=== PATIENT | male | born 1975 | race Caucasian/White ===

== ENCOUNTER 2019-02-27 18:50 | Emergency (ER) | payer SELFPAY ==
[~2019-02-27] VITALS: Ht 274.3 cm; Wt 95.3 kg
--- OUTSIDE RECORDS SUMMARY | 2019-02-27 18:55 | XMS REPORT | Continuity Of Care Document ---
Author Author [facility] Organization [facility] Address [address] [place] [address] Phone Care Team Providers Care Physician Relations Specialist Name Role Phone BREEDING REX OTERO Unavailable UNASSIGNED, ED PHYSICIAN Unavailable Unavailable NOT NEEDED, NSP Unavailable Unavailable SALOMÓN PORRAS DO AT Results Lab Results Visit/Account #[id number] (May 19, 2015 8:46am - May 19, 2015 1:25pm) Test Result Date/Time 72403-4: COMPLETE BLOOD COUNT WITH DIFF WHITE BLOOD COUNT(4.0-11.0 10E3/UL) 12.4 10E3/UL May 19, 2015 8:47am RED BLOOD COUNT(4.50-5.90 10E6/UL) 4.98 10E6/UL May 19, 2015 8:47am HEMOGLOBIN(13.5-17.5 G/DL) 14.9 G/DL May 19, 2015 8:47am HEMATOCRIT(41.0-53.0 %) 44.4 % May 19, 2015 8:47am MEAN CORPUSCULAR VOLUME(82.0-100.0 FL) 89.2 FL May 19, 2015 8:47am 84358-2: MEAN CORPUSCULAR HEMOGLOBIN(26.0-34.0 PG) 29.9 PG May 19, 2015 8:47am MEAN CORPUSCULAR HGB CONC(31.5-36.5 G/DL) 33.6 G/DL May 19, 2015 8:47am RED CELL DISTRIBUTION WIDTH(11.5-14.5 %) 13.3 % May 19, 2015 8:47am 777-3: PLATELET COUNT(150-450 10E3/UL) 308 10E3/UL May 19, 2015 8:47am MEAN PLATELET VOLUME(8.2-12.4 FL) 10.8 FL May 19, 2015 8:47am 770-8: NEUTROPHILS % (AUTO)(40-70 %) 72 % May 19, 2015 8:47am LYMPHOCYTES % (AUTO)(15-45 %) 17 % May 19, 2015 8:47am 5905-5: MONOCYTES % (AUTO)(2-10 %) 7 % May 19, 2015 8:47am 713-8: EOSINOPHILS % (AUTO)(0-6 %) 4 % May 19, 2015 8:47am 706-2: BASOPHILS % (AUTO)(0-1 %) 1 % May 19, 2015 8:47am 96225-6: IMMATURE GRANS % (AUTO)(0-0 %) 0 % May 19, 2015 8:47am NUCLEATED RBCS (AUTO)(0-0 %) 0 % May 19, 2015 8:47am 751-8: NEUTROPHILS # (AUTO)(2.5-7.5 10E3/UL) 9.0 10E3/UL May 19, 2015 8:47am 58104-2: LYMPHOCYTES # (AUTO)(1.0-4.0 10E3/UL) 2.1 10E3/UL May 19, 2015 8:47am 742-7: MONOCYTES # (AUTO)(0.2-0.8 10E3/UL) 0.8 10E3/UL May 19, 2015 8:47am 711-2: EOSINOPHILS # (AUTO)(0.0-0.4 10E3/UL) 0.4 10E3/UL May 19, 2015 8:47am 704-7: BASOPHILS # (AUTO)(0.0-0.2 10E3/UL) 0.1 10E3/UL May 19, 2015 8:47am IMMATURE GRANS # (AUTO)(0.0-0.0 10E3/UL) 0.1 10E3/UL May 19, 2015 8:47am DIFF TYPE AUTOMATED May 19, 2015 8:47am UA WITH SCREEN FOR CULTURE 5778-6: COLOR,URINE YELLOW May 19, 2015 8:45am 04855-6: CLARITY,URINE CLEAR May 19, 2015 8:45am GLUCOSE, URINE(NEGATIVE MG/DL) NEGATIVE MG/DL May 19, 2015 8:45am URINE BILIRUBIN(NEGATIVE) NEGATIVE May 19, 2015 8:45am 22751-1: KETONES,URINE(NEGATIVE MG/DL) NEGATIVE MG/DL May 19, 2015 8:45am 2965-2: URINE SPECIFIC GRAVITY(1.001-1.035) 1.025 May 19, 2015 8:45am 75671-5: URINE BLOOD(NEGATIVE) NEGATIVE May 19, 2015 8:45am 2756-5: URINE PH(5.0-9.0) 6.0 May 19, 2015 8:45am URINE PROTEIN(Less than 20 MG/DL) NEGATIVE MG/DL May 19, 2015 8:45am URINE UROBILINOGEN(0.2-1.0 MG/DL) 0.2 MG/DL May 19, 2015 8:45am URINE NITRITE(NEGATIVE) NEGATIVE May 19, 2015 8:45am 5799-2: LEUKOCYTE ESTERASE ,URINE(NEGATIVE) NEGATIVE May 19, 2015 8:45am 630-4: URINE CULTURE NOT INDICATED May 19, 2015 8:45am URINE MICROSCOPIC REQUIRED NO May 19, 2015 8:45am 24896-0: COMPLETE METABOLIC PROFILE GLUCOSE(70-110 MG/DL) 109 MG/DL May 19, 2015 8:47am BLOOD UREA NITROGEN(6-20 MG/DL) 18 MG/DL May 19, 2015 8:47am CREATININE(0.50-1.20 MG/DL) 1.07 MG/DL May 19, 2015 8:47am 06094-1: EST GLOMERULAR FILTRATION RATE(Greater than or equal to 60) Greater than or equal to 60 Result Comments: If the patient is of -Iraqi descent/extraction multiply the eGFR value by 1.212 to obtain the actual eGFR. >=60 mg/dL Normal 30-59 mg/dL Moderate Kidney Disease 15-29 mg/dL Severe Kidney Disease <15 mg/dL Kidney Failure May 19, 2015 8:47am BUN CREATININE RATIO(10.0-20.0 RATIO) 17.0 RATIO May 19, 2015 8:47am SODIUM(135-145 MMOL/L) 138 MMOL/L May 19, 2015 8:47am POTASSIUM(3.6-5.0 MMOL/L) 4.2 MMOL/L May 19, 2015 8:47am CHLORIDE(101-111 MMOL/L) 102 MMOL/L May 19, 2015 8:47am 2027-9: CO2(21-31 MMOL/L) 27.0 MMOL/L May 19, 2015 8:47am 11807-8: ANION GAP(8-18) 13 May 19, 2015 8:47am OSMO CALCULATED(270.0-290.0) 278.2 May 19, 2015 8:47am CALCIUM(8.5-10.5 MG/DL) 9.8 MG/DL May 19, 2015 8:47am BILIRUBIN,TOTAL(0.1-1.2 MG/DL) 0.4 MG/DL May 19, 2015 8:47am ALKALINE PHOSPHATASE(42-121 IU/L) 65 IU/L May 19, 2015 8:47am ASPARTATE AMINO TRANSFERASE(10-42 IU/L) 18 IU/L May 19, 2015 8:47am ALANINE AMINOTRANSFERASE(10-60 IU/L) 27 IU/L May 19, 2015 8:47am 49923-0: TOTAL PROTEIN(6.4-8.2 G/DL) 7.0 G/DL May 19, 2015 8:47am ALBUMIN(3.5-5.5 G/DL) 4.2 G/DL May 19, 2015 8:47am 2336-6: GLOBULIN(2.4-3.6) 2.8 May 19, 2015 8:47am ALBUMIN/GLOBULIN RATIO(0.9-1.8 RATIO) 1.5 RATIO May 19, 2015 8:47am 72492-4: MAGNESIUM 04609-9: MAGNESIUM(1.8-2.5 MG/DL) 2.0 MG/DL May 19, 2015 8:47am 69229-4: CARDIAC TROPONIN I 64915-2: CARDIAC TROPONIN I(0.01-0.04 NG/ML) Less than 0.01 NG/ML Result Comments: REFERENCE RANGES: NEGATIVE < 0.04 NG/ML POSSIBLE MYCARDIAL INVOLVEMENT >/=0.04 NG/ML INTERPRET TROPONIN I RESULT IN LIGHT OF THE TOTAL CLINICAL PRESENTATION INCLUDING CLINICAL HISTORY. ANY CONDITION RESULTING IN MYOCARDIAL INJURY CAN POTENTIALLY ELEVATE TROPONIN I LEVELS ABOVE EXPECTED NORMAL RANGES. NOTE NEW REFERENCE RANGE May 19, 2015 8:47am 3040-3: LIPASE 3040-3: LIPASE(22-51 U/L) 40 U/L May 19, 2015 8:47am THYROID STIMULATING HORMONE THYROID STIMULATING HORMONE(0.340-5.600 uIU/ML) 1.910 uIU/ML May 19, 2015 8:47am Allergies and Adverse Reactions Allergies and Adverse Reactions Patient Unit Number: [id number] Agent Type Reaction Severity Status NO KNOWN DRUG ALLERGIES Drug Allergy Unknown Unknown Active Problem List Problem List Visit/Account #[id number] (May 19, 2015 8:46am - May 19, 2015 1:25pm) Acute Problems: Code/Condition Comments Documented Start Date Documented Resolved Date Code(s) Cholelithiases ICD10: K80.20 Cholelithiasis ICD9: 574.20 Cholelithiasis SNOMED: 460684140 Cholelithiasis Afib ICD10: I48.91 Atrial fibrillation ICD9: 427.31 Atrial fibrillation SNOMED: 75362558 Atrial fibrillation Abdominal pain ICD10: R10.9 Abdominal pain ICD9: 789.00 Abdominal pain SNOMED: 67485656 Abdominal pain Plan of Care Plan Of Care Visit/Account #[id number] (May 19, 2015 8:46am - May 19, 2015 1:25pm) Patient Instructions Take the [place] one to 2 tablets every 6 hours as needed for pain, take the Zofran every 8 hours as needed for nausea. Followup tomorrow at 10:15 AM to check in for your HIDA scan, follow up with Dr. Velazquez at 1pm for your appointment for gall stones. Do not drink or eat after midnight. Return to the ED for any concerns or worsening of symptoms. Follow up with Dr. Ahn for your afib, call her office to be seen this week. Vital Signs Vital Signs Visit/Account #[id number] (May 19, 2015 8:46am - May 19, 2015 1:25pm) Sign First Result Last Result Code(s) Temperature in Fahrenheit Temperature (Fahrenheit): 96.1 [degF] On May 19, 2015 8:38am 8310-5 Body Temperature Weight in Kilograms Weight (Kilograms): 89.1 kg On May 19, 2015 8:38am 3141-9 Weight Measured 27105-5 Body weight measured in kilograms Functional Status Functional and Cognitive Status No Functional Status Data Medications Inpatient/Ordered Medications - Medications administered during hospital visit Visit/Account #[id number] (May 19, 2015 8:46am - May 19, 2015 1:25pm) Medication Route Sig/Schedule Precondition/Indication Comments/Instructions Codes SUBLIMAZE INJ(FentaNYL CITRATE) 100 MCG/2 ML INJECTION Dose: 1.5 ML INTRAVEN NOW Rx Order Comments: Order placed as verified: Dose Warnings differ from court orderly Dose Warnings differ from court orderly Label Comments: MAY INCREASE FALL RISK Fentanyl 0.05 MG/ML Injectable Solution (RxNorm): 924347 SUBLIMAZE INJ (FentaNYL CITRATE) NDC: 07133843215 ZOFRAN INJ(ONDansetron HCL) 4 MG/2 ML INJECTION Dose: 2 ML INTRAVEN ONE TIME ORDER Rx Order Comments: Order placed as verified: Dose Warnings differ from court orderly Dose Warnings differ from court orderly Label Comments: SLOW IV PUSH MAY BE SUBSTITUTED FOR ANZEMET (DOLASETRON) MAY INCREASE FALL RISK Ondansetron 2 MG/ML Injectable Solution (RxNorm): 784801 ZOFRAN INJ (ONDansetron HCL) NDC: 00708626802 IV Medication Carriers: NORMAL SALINE(SODIUM CHLORIDE) 1000 ML INJECTION Dose: 1000 ML INTRAVEN .Q1H (Rate: 1000 MLS/HR Duration: 1 HR) Rx Order Comments: Order placed as verified: Dose Warnings differ from court orderly Dose Warnings differ from court orderly Carriers: Sodium Chloride 0.154 MEQ/ML Injectable Solution (RxNorm): 491928 NORMAL SALINE (SODIUM CHLORIDE) NDC: 32478021234 Discharge Medications - Medications that patient should continue to take. Review with physician Visit/Account #[id number] (May 19, 2015 8:46am - May 19, 2015 1:25pm) Medication Route Sig/Schedule Precondition/Indication Comments/Instructions Codes NORCO 5-325 TABLET(HYDROcodone BIT/ACETAMINOPHEN) 1 EACH TABLET Dose: 1-2 TAB ORAL EVERY 6 HOURS PAIN Acetaminophen 325 MG / Hydrocodone Bitartrate 5 MG Oral Tablet (RxNorm): 649385 NORCO 5-325 TABLET (HYDROcodone BIT/ACETAMINOPHEN) NDC: 16880785866 ZOFRAN ODT(ONDansetron) 4 MG/UDTABLET TAB.RAPDIS Dose: 4 MG ORAL EVERY 8 HOURS NAUSEA Ondansetron 4 MG Disintegrating Oral Tablet [Zofran] (RxNorm): 256096 ZOFRAN ODT (ONDansetron) [facility]: [id number] History Of Encounters Encounters Visit/Account #[id number] (May 19, 2015 8:46am - May 19, 2015 1:25pm) Account Status Physican Of Record Reason For Visit Visit Diagnosis Start Date/Time Stop Date/Time ER SALOMÓN PORRAS DO LEFT LOWER ABD PAIN Not Available May 19, 2015 8:46am May 19, 2015 1:25pm History of Procedures Procedure List No procedures recorded. Discharge Instructions Discharge Instructions Visit/Account #[id number] (May 19, 2015 8:46am - May 19, 2015 1:25pm) DISCHARGE INSTRUCTIONS Physician Documentation Social History Social History No Social History Data. Immunizations Immunizations Patient Unit Number: [id number] Immunizations No immunizations recorded.
--- NOTE | 2019-02-27 19:36 | Diagnostic Imaging Report ---
EXAMINATION: Left ankle radiographs, 3 views. COMPARISON: None. HISTORY: 44-year-old male, fell out of a tree. Left ankle pain. FINDINGS: There is a mildly displaced fracture involving the lateral aspect of the talus with adjacent soft tissue swelling. The alignment of the ankle mortise is unremarkable. There is no identified large tibiotalar joint effusion. There is no identified radiopaque foreign body. IMPRESSION: 1. Mildly displaced fracture involving the lateral talus. Dictated by: Dictated on workstation # [id number]
--- NOTE | 2019-02-27 19:43 | ED Lower Extremity ---
General Chief Complaint: Lower Extremity Stated Complaint: LT ANKLE PAIN Nursing Triage Note: pt fell out of tree earlier today, has been walking around since but co left ankle pain Nursing Sepsis Screen: No Definite Risk History of Present Illness Date Seen by Provider: Feb 27, 2019 Time Seen by Provider: 18:56 Initial Comments 44-year-old male presenting with complaints of left ankle pain since falling from a tree around 1600. He states that he fell approximately 15-20 feet and landed on his feet. He is having left ankle pain and is unable to bear weight. He states that when he tries to bear any weight on the left ankle he feels a grinding sensation. He has more pain towards the outside her lateral part of his ankle but he also has some pain in the medial aspect of the ankle. He did wrap his ankle with an Matthew bandage and tried taking 4 Tylenol pills at home. He went to the [facility] clinic and was directed to come here. They had not evaluated him or done any x-rays. He denies hitting his head or having any other injuries. He is able to bear weight on the right foot and ankle. He denies previous injuries to the left ankle. He has normal sensation and pulses to the left foot. Allergies and Home Medications Allergies Coded Allergies: No Known Drug Allergies (Unverified , 02/27/19) Home Medications Hydrocodone Bit/Acetaminophen 1 Tab Tab, 1 EACH PO Q4-6HR PRN for PAIN-MODERATE Prescribed by: MIKALA CARBONE on 02/27/19 5729 Patient Home Medication List Home Medication List Reviewed: Yes Review of Systems Constitutional: no symptoms reported EENTM: no symptoms reported Respiratory: no symptoms reported Cardiovascular: no symptoms reported Gastrointestinal: no symptoms reported Genitourinary: no symptoms reported Musculoskeletal: see HPI Skin: no symptoms reported Past Vssyuap-Jxbcsh-Hktyzc Hx Past Med/Social Hx: Reviewed Nursing Past Med/Soc Hx Patient Social History Alcohol Use: Denies Use Recreational Drug Use: No Smoking Status: Current Everyday Smoker Type Used: Cigarettes 2nd Hand Smoke Exposure: No Recent Foreign Travel: No Contact w/Someone Who Travel: No Recent Infectious Disease Expo: No Recent Hopitalizations: No Physical Abuse: No Sexual Abuse: No Mistreated: No Fear: No Seasonal Allergies Seasonal Allergies: No Past Medical History Surgeries: Yes Tonsillectomy Respiratory: No Cardiac: No Neurological: No Genitourinary: No Gastrointestinal: No Musculoskeletal: No Endocrine: No HEENT: No Cancer: No Psychosocial: No Integumentary: No Blood Disorders: No Physical Exam Vital Signs Vital Signs - First Documented 02/27/19 19:08 Temp 97.8 Pulse 50 Resp 20 B/P (MAP) 105/78 (87) Pulse Ox 98 O2 Delivery Room Air Capillary Refill : Less Than 3 Seconds Height, Weight, BMI Height: 9'" Weight: 210lbs. oz. 95.966339xf; BMI Method:Stated General Appearance: WD/WN, mild distress HEENT: PERRL/EOMI, pharynx normal Neck: non-tender, full range of motion, supple, normal inspection Cardiovascular: normal peripheral pulses, regular rate, rhythm Respiratory: chest non-tender, lungs clear, normal breath sounds Back: normal inspection, no vertebral tenderness Knees: left knee non-tender, left knee normal inspection, left knee normal range of motion, left knee no evidence of injury Ankles: left ankle bone tenderness, left ankle limited range of motion, left ankle pain, left ankle soft tissue tenderness, left ankle swelling Feet: left foot pain, left foot soft tissue tenderness, left foot swelling Neurologic/Tendon: normal sensation, normal motor functions, normal tendon functions Neurologic/Psychiatric: no motor/sensory deficits, alert, normal mood/affect, oriented x 3 Skin: normal color, warm/dry Progress/Results/Core Measures Results/Orders My Orders Orders - MIKALA CARBONE MD Ice: Apply To Affected Area (02/27/19 19:15) Elevate Affected Extremity (02/27/19 19:15) Ankle 3 View Left (02/27/19 19:15) Ct Extremity Lower Left Wo (02/27/19 20:18) Crutches (02/27/19 21:34) Ed Ortho Supplies Order (02/27/19 21:34) Rx-Hydrocodone/Apap 5-325 Mg (Rx-Vicodin (02/27/19 22:45) Vital Signs/I&O 02/27/19 02/27/19 19:08 22:47 Temp 97.8 Pulse 50 92 Resp 20 16 B/P (MAP) 105/78 (87) 104/51 (68) Pulse Ox 98 98 O2 Delivery Room Air Room Air Blood Pressure Mean: 87 Progress Progress Note #1: Progress Note obtain xrays of the left ankle and give ice pack with elevation of the left foot/ankle. He took acetaminophen at home prior to coming to the ED so will hold off on pain medicine until after imaging. Progress Note #2: Time: 19:38 Progress Note On my review with the 3 view films of his left ankle there are no acute fracture or dislocation. Will plan on treating for severe sprain with splint and crutches for weightbearing as tolerated. Will have him follow-up through the clinic for continued management. Progress Note #3: Time: 19:44 Progress Note The radiologist read the xrays as showing a fracture of the lateral talus so a CT scan will be obtained to get finer details of the Talus fracture and determine if he needs emergent transfer or if he can be seen urgently within the next 3-7 days. Pt was updated on results and offered pain medicine again but he stated he was only a 3-4 out of 10 for pain as long as he was not trying to walk on his leg. Progress Note #4: Time: 21:[address] read as comminuted and mildly displaced fx of lateral talus and articulating surface of posterior talar facet with 1.8 mm offset of the articulating surface. Updated pt and family and they would like to try and follow up with Ortho in since they live in [place]. Contacted [facility] transfer center and [facility], connected me with Dr. Alanna Grimes, the pulmonary fellow Orthopedist. She recommended having the patient follow up with Dr. Zakiya Ortiz from her group but she will not be back in office until Tuesday, or Dr. Ranjit Roberts from [facility]. They are both specialist with the foot and ankle and would be able to manage the Talus fracture. I gave the information and office phone numbers to the patient for follow up. Counseled on use of crutches and to keep the splint on at all times except to loosen it for sponge bathing of the leg. Non weight bearing on the leg and use hydrocodone as needed for severe pain. Diagnostic Imaging Diagonstic Imaging: Xray Plain Films/CT/US/NM/MRI: ankle Comments NAME: CHANDRA RICHEY MED REC#: [id number] PT STATUS: REG ER : 1975 PHYSICIAN: MIKALA CARBONE MD ADMIT DATE: 02/27/19/ER FS Signed Date of Exam:02/27/19 ANKLE 3 VIEW LEFT EXAMINATION: Left ankle radiographs, 3 views. COMPARISON: None. HISTORY: 44-year-old male, fell out of a tree. Left ankle pain. FINDINGS: There is a mildly displaced fracture involving the lateral aspect of the talus with adjacent soft tissue swelling. The alignment of the ankle mortise is unremarkable. There is no identified large tibiotalar joint effusion. There is no identified radiopaque foreign body. IMPRESSION: 1. Mildly displaced fracture involving the lateral talus. Dictated by: Dictated on workstation # [id number] Dict: 02/27/191925 Trans: 02/27/191941 [facility] [id number] Interpreted by: MIRELLA MCGRATH MD Electronically signed by: MIRELLA MCGRATH MD 02/27/191941 Diagonstic Imaging: CT Plain Films/CT/US/NM/MRI: ankle Comments NAME: CHANDRA RICHEY [facility] REC#: [id number] PT STATUS: REG ER : 1975 PHYSICIAN: MIKALA CARBONE MD ADMIT DATE: 02/27/19/ER FS Draft Date of Exam:02/27/19 CT EXTREMITY LOWER LEFT WO PROCEDURE: CT left lower extremity without contrast. TECHNIQUE: Multiple contiguous axial images were obtained through the left lower extremity without the use of intravenous contrast. Sagittal and coronal reformations were then performed. Auto Exposure Controls were utilized during the CT exam to meet ALARA standards for radiation dose reduction. DATE: February 27, 2019. INDICATION: 44-year-old male, ankle pain and swelling after a fall from 20 feet. COMPARISON: Ankle radiographs February 27, 2019. FINDINGS: There is a comminuted mildly displaced fracture involving the lateral talus. There is intra-articular fracture extension to the posterior talar facet with mild offset of the articulating surface best illustrated on sagittal image 71 measuring up to approximately 1.8 mm. The fracture also extends to the posterior aspect of the bony margin of the sinus tarsi. There is a fairly well-corticated ossification between the lateral aspect of the distal tibia and adjacent distal fibula on axial image 185. This potentially may be long-standing in age and could relate to sequela of remote prior injury. There is no additional identified acute fracture. The talar dome is intact. There is subcutaneous edema diffusely noted at the level of the ankle. IMPRESSION: 1. Comminuted mildly displaced fracture of the lateral talus which includes involvement of the articulating surface of the posterior talar facet with approximately 1.8 mm offset of the articulating surface. Dictated on workstation # [id number] Dict: 02/27/192127 Trans: 02/27/192136 [facility] [id number] Interpreted by: MIRELLA MCGRATH MD Electronically signed by: Departure Impression Primary Impression: Traumatic closed fracture of left talus with minimal displacement Qualified Codes: S92.102A - Unspecified fracture of left talus, initial encounter for closed fracture Disposition: HOME, SELF-CARE Condition: Stable Departure-Patient Inst. Decision time for Depature: 22:28 Referrals: NO,LOCAL PHYSICIAN (PCP/Family) Primary Care Physician Patient Instructions: Ankle Fracture (DC), How to Use Crutches, SPLINT CARE Add. Discharge Instructions: Do not bear any weight on your left leg. Use the crutches to walk with. Next Use the splint at all times and do not remove the boot from your leg except to sponge bathe your foot and leg. Follow up with Orthopedics as soon as possible about your ankle fracture of the Talus bone. Dr. Zakiya Ortiz will be in clinic on Tuesday at Orthopedics with [facility] and her number is [phone] Dr. Ranjit Roberts with [facility] is another ankle specialist in [place] you could call and his number is [phone] Call in the am and let them know you were in the ER and need to follow up as soon as possible about your Talus fracture and were advised to be seen in clinic by Dr. Grimes, the pulmonary fellow Orthopedics doctor for [facility] All discharge instructions reviewed with patient and/or family. Voiced understanding. Scripts Hydrocodone Bit/Acetaminophen (Hydrocodone/Acetaminophen 5/325mg Tablet) 1 Tab Tab 1 EACH PO Q4-6HR PRN for PAIN-MODERATE MDD 10 for 5 Days, #30 TAB 0 Refills Prov: MIKALA CARBONE MD 02/27/19 MIKALA CARBONE MD Feb 27, 2019 19:43
--- NOTE | 2019-02-27 21:37 | Diagnostic Imaging Report ---
PROCEDURE: CT left lower extremity without contrast. TECHNIQUE: Multiple contiguous axial images were obtained through the left lower extremity without the use of intravenous contrast. Sagittal and coronal reformations were then performed. Auto Exposure Controls were utilized during the CT exam to meet ALARA standards for radiation dose reduction. DATE: February 27, 2019. INDICATION: 44-year-old male, ankle pain and swelling after a fall from 20 feet. COMPARISON: Ankle radiographs February 27, 2019. FINDINGS: There is a comminuted mildly displaced fracture involving the lateral talus. There is intra-articular fracture extension to the posterior talar facet with mild offset of the articulating surface best illustrated on sagittal image 71 measuring up to approximately 1.8 mm. The fracture also extends to the posterior aspect of the bony margin of the sinus tarsi. There is a fairly well-corticated ossification between the lateral aspect of the distal tibia and adjacent distal fibula on axial image 185. This potentially may be long-standing in age and could relate to sequela of remote prior injury. There is no additional identified acute fracture. The talar dome is intact. There is subcutaneous edema diffusely noted at the level of the ankle. IMPRESSION: 1. Comminuted mildly displaced fracture of the lateral talus which includes involvement of the articulating surface of the posterior talar facet with approximately 1.8 mm offset of the articulating surface. Dictated by: Dictated on workstation # [id number]
[2019-02-27] MEDS ORDERED: ACHD5005 PO (22:33)
[2019-02-27] MEDS ORDERED: RX-HYDROCODONE/APAP 5/325 MG #4 TAB PK PO PRN (22:45)
[2019-02-27 22:47] VITALS: BP 104/51
== END 2019-02-27 22:47 | disposition home or self-care (01) ==
LOC: ER FS 18:52
DX: S92.142A Displaced dome fracture of left talus, initial encounter for closed fracture (principal); F17.210 Nicotine dependence, cigarettes, uncomplicated; Z90.89 Acquired absence of other organs; W14.XXXA Fall from tree, initial encounter
CPT/HCPCS: 73610; 73700